=== PATIENT | male | born 1990 | race Caucasian/White ===

== ENCOUNTER 2021-11-01 12:07 | Inpatient (IN) | payer OTHER ==
[~2021-11-01] VITALS: Ht 182.9 cm; Wt 100.0 kg
[2021-11-01] MEDS ORDERED: LORazepam 2 MG/ML VIAL IV STA (13:23)
[2021-11-01] MEDS ORDERED: NS 1,000 ML IV ONE (13:25)
[2021-11-01 14:03] LABS: BASO % 0.6 % (0.0-1.0); EOS # 0.4 10^3/uL (0.0-0.5); EOS % 5.7 % (0.0-3.0); HEMATOCRIT 40.3 % (42.0-52.0); HEMOGLOBIN 13.9 g/dl (13.5-17.5); LYMPH # 0.8 10^3/uL (1.5-5.0); LYMPH % 11.9 % (24.0-44.0); MEAN CORPUSCULAR HEMOGLOBIN 32.4 pg (27.0-33.0); MEAN CORPUSCULAR HGB CONC 34.5 g/dl (32.0-36.5); MEAN CORPUSCULAR VOLUME 93.9 fl (80.0-96.0); MONO # 0.6 10^3/uL (0.0-0.8); MONO % 8.8 % (2.0-8.0); NEUTROPHILS # 5.1 10^3/uL (1.5-8.5); NEUTROPHILS % 72.6 % (36.0-66.0); PLATELET COUNT, AUTOMATED 136 10^3/uL (150-450); RED BLOOD COUNT 4.29 10^6/uL (4.30-6.10)
[2021-11-01 14:30] LABS: ALBUMIN 4.4 GM/DL (3.2-5.2); ALT/SGPT 299 U/L (12-78); BILIRUBIN,DIRECT < 0.1 MG/DL (0.0-0.2); BILIRUBIN,TOTAL 0.6 MG/DL (0.2-1.0); LIPASE 170 U/L (73-393); TOTAL PROTEIN 8.2 GM/DL (6.4-8.2)
[2021-11-01] MEDS ORDERED: ISOVUE-370 76% 100ML VIAL As Ordered ONE (14:43)
[2021-11-01] MEDS: LORazepam 2 MG TAB PO PRN ×2 (14:53→17:28)
[2021-11-01 15:16] LABS: ETHYL ALCOHOL (ETHANOL) 0.019 % (0.000-0.010)
[2021-11-01 18:17] LABS: AMPHETAMINES LEVEL URINE NEGATIVE (NEGATIVE); BARBITURATES URINE NEGATIVE (NEGATIVE); BENZODIAZEPINES URINE NEGATIVE (NEGATIVE); CANNABINOIDS URINE NEGATIVE (NEGATIVE); COCAINE METABOLITE URINE NEGATIVE (NEGATIVE); METHADONE URINE NEGATIVE (NEGATIVE); OPIATES URINE NEGATIVE (NEGATIVE); PHENCYCLIDINE URINE NEGATIVE (NEGATIVE)
[2021-11-01 18:46] LABS: RSV AMPLIFICATION NEGATIVE (NEGATIVE)
[2021-11-01] MEDS ORDERED: LORazepam 2 MG TAB PO PRN (19:55)
[2021-11-01] MEDS: NS 1,000 ML IV SCH (20:36)
[2021-11-01] MEDS: OXAZEPAM 10MG CAP PO SCH (20:36)
[2021-11-01] MEDS ORDERED: ADVI200T PO (21:29)
[2021-11-01] MEDS ORDERED: HOME MED LIST COMPLETE! XX SCH (21:30)
[2021-11-01 21:32] LABS: HEPATITIS B SURFACE ANTIGEN NEGATIVE (NEGATIVE)
[2021-11-01 22:00] LABS: HEPATITIS C VIRUS ABY INDEX 0.2 INDEX (<0.8)
[2021-11-01 22:01] LABS: HEPATITIS B CORE ANTIBODY IGM NEGATIVE (NEGATIVE)
[2021-11-02] MEDS: OXAZEPAM 10MG CAP PO SCH ×5 (01:46→23:10)
[2021-11-02] MEDS: NS 1,000 ML IV SCH (06:20)
[2021-11-02 08:00] VITALS: BP 134/81
[2021-11-02] MEDS: ENOXAPARIN 40MG/0.4ML SYRINGE (J1650 PER 10MG) SC SCH (08:05)
[2021-11-02] MEDS: THIAMINE 100 MG TAB PO SCH (08:05)
[2021-11-02] MEDS: FOLIC ACID 1 MG TAB PO SCH (08:05)
[2021-11-02] MEDS: MULTIVITAMINS/MINERALS THERAP 1 TAB PO SCH (08:05)
[2021-11-02 09:27] LABS: ALBUMIN 4.1 GM/DL (3.2-5.2); ALT/SGPT 244 U/L (12-78); BLOOD UREA NITROGEN 10 MG/DL (7-18); CALCIUM LEVEL 9.7 MG/DL (8.5-10.1); CARBON DIOXIDE LEVEL 30 MEQ/L (21-32); CHLORIDE LEVEL 100 MEQ/L (98-107); CREATININE FOR GFR 0.92 MG/DL (0.70-1.30); GLOMERULAR FILTRATION RATE > 60.0 (>60); GLUCOSE, FASTING 92 MG/DL (70-100); POTASSIUM SERUM 4.4 MEQ/L (3.5-5.1); SODIUM LEVEL 136 MEQ/L (136-145); TOTAL PROTEIN 7.4 GM/DL (6.4-8.2)
[2021-11-02 14:00] VITALS: BP 139/76
[2021-11-02 17:25] VITALS: BP 165/86
[2021-11-02 22:00] VITALS: BP 153/85
[2021-11-03 04:13] VITALS: BP 139/85
[2021-11-03] MEDS: OXAZEPAM 10MG CAP PO SCH (05:38)
[2021-11-03 05:41] VITALS: BP 139/85
[2021-11-03] MEDS ORDERED: FOLI1TAB11 PO (08:36)
[2021-11-03] MEDS ORDERED: OXAZ10CA3 PO (08:36)
[2021-11-03] MEDS ORDERED: THIA100TA PO (08:36)
[2021-11-03] MEDS ORDERED: VITMTA PO (08:36)
[2021-11-03] MEDS: ENOXAPARIN 40MG/0.4ML SYRINGE (J1650 PER 10MG) SC SCH (09:00)
[2021-11-03] MEDS: MULTIVITAMINS/MINERALS THERAP 1 TAB PO SCH (09:06)
[2021-11-03] MEDS: FOLIC ACID 1 MG TAB PO SCH (09:06)
[2021-11-03] MEDS: THIAMINE 100 MG TAB PO SCH (09:06)
== END 2021-11-03 10:20 | disposition home or self-care (01) | DRG 898 ==
LOC: M ED 12:07 → M ED INP 19:51 → M MSPAV 11-02 17:26
PROVIDERS: ADMIT Family Medicine; ATTEND Internal Medicine
DX: F10.139 Alcohol abuse with withdrawal, unspecified (principal); R74.01 Elevation of levels of liver transaminase levels; Z20.822 Contact with and (suspected) exposure to COVID-19

== ENCOUNTER 2022-01-04 00:48 | Inpatient (IN) | payer OTHER ==
[~2022-01-04] VITALS: Ht 185.4 cm; Wt 100.5 kg
[~2022-01-04 00:48] MED LIST: ADVI200T PO; FOLI1TAB11 PO; OXAZ10CA3 PO; THIA100TA PO; VITMTA PO
[2022-01-04 01:45] LABS: HEMATOCRIT 42.9 % (42.0-52.0); HEMOGLOBIN 14.6 g/dl (13.5-17.5); MEAN CORPUSCULAR HEMOGLOBIN 30.9 pg (27.0-33.0); MEAN CORPUSCULAR VOLUME 90.7 fl (80.0-96.0); PLATELET COUNT, AUTOMATED 240 10^3/uL (150-450); RED BLOOD COUNT 4.73 10^6/uL (4.30-6.10); WHITE BLOOD COUNT 9.3 10^3/uL (4.0-10.0)
[2022-01-04 02:01] LABS: AMPHETAMINES LEVEL URINE NEGATIVE (NEGATIVE); BARBITURATES URINE NEGATIVE (NEGATIVE); BENZODIAZEPINES URINE NEGATIVE (NEGATIVE); CANNABINOIDS URINE NEGATIVE (NEGATIVE); COCAINE METABOLITE URINE NEGATIVE (NEGATIVE); METHADONE URINE NEGATIVE (NEGATIVE); OPIATES URINE NEGATIVE (NEGATIVE); PHENCYCLIDINE URINE NEGATIVE (NEGATIVE)
[2022-01-04 02:04] LABS: RSV AMPLIFICATION NEGATIVE (NEGATIVE)
[2022-01-04 02:11] LABS: ACETAMINOPHEN LEVEL < 2.0 UG/ML (10.0-30.0); ALBUMIN 4.3 GM/DL (3.2-5.2); ALT/SGPT 22 U/L (12-78); BILIRUBIN,DIRECT 0.2 MG/DL (0.0-0.2); BLOOD UREA NITROGEN 8 MG/DL (7-18); CALCIUM LEVEL 10.2 MG/DL (8.5-10.1); CARBON DIOXIDE LEVEL 30 MEQ/L (21-32); CHLORIDE LEVEL 99 MEQ/L (98-107); CREATININE FOR GFR 1.09 MG/DL (0.70-1.30); ETHYL ALCOHOL (ETHANOL) < 0.003 % (0.000-0.010); GLOMERULAR FILTRATION RATE > 60.0 (>60); GLUCOSE, FASTING 107 MG/DL (70-100); SALICYLATE LEVEL < 1.7 MG/DL (5.0-30.0); SODIUM LEVEL 136 MEQ/L (136-145); TOTAL PROTEIN 7.6 GM/DL (6.4-8.2)
[2022-01-04] MEDS ORDERED: MULTIVITAMINS/MINERALS THERAP 1 TAB PO SCH (09:00)
[2022-01-04] MEDS ORDERED: THIAMINE 100 MG TAB PO SCH (09:00)
[2022-01-04] MEDS ORDERED: FOLIC ACID 1 MG TAB PO SCH (09:00)
[2022-01-04] MEDS ORDERED: HOME MED LIST COMPLETE! XX SCH (09:50)
[2022-01-04] MEDS ORDERED: IBUPROFEN 400MG TAB PO PRN (17:50)
[2022-01-04] MEDS ORDERED: OLANZapine 5 MG TAB PO PRN (17:50)
[2022-01-04] MEDS ORDERED: LORazepam 2 MG TAB PO PRN (17:50)
[2022-01-04] MEDS ORDERED: MOM 30ML SUSPENSION UDC PO PRN (17:50)
[2022-01-04] MEDS ORDERED: MAALOX 30 ML SUSP *UDC PO PRN (17:50)
[2022-01-04 23:16] VITALS: BP 133/84
[2022-01-04] MEDS: THIAMINE 100 MG TAB PO SCH (23:27)
[2022-01-04] MEDS: traZODone 50 MG TAB PO PRN (23:27)
[2022-01-04 23:31] VITALS: BP 133/84
[2022-01-05 06:16] VITALS: BP 169/77
[2022-01-05 06:28] VITALS: BP 169/77
[2022-01-05] MEDS: FOLIC ACID 1 MG TAB PO SCH (09:47)
[2022-01-05] MEDS: THIAMINE 100 MG TAB PO SCH ×2 (09:47→20:59)
[2022-01-05] MEDS: MULTIVITAMINS/MINERALS THERAP 1 TAB PO SCH (09:47)
[2022-01-05] MEDS: NICOTINE 21MG/24HR 1 EA TRANSDERMAL TD PRN (09:49)
[2022-01-05] MEDS: NALTREXONE 50 MG TAB PO SCH (13:26)
[2022-01-05] MEDS: SERTRALINE HCL 50 MG TAB PO SCH (13:26)
[2022-01-05 13:55] VITALS: BP 140/86
[2022-01-05 18:34] VITALS: BP 119/73
[2022-01-05] MEDS: traZODone 50 MG TAB PO PRN (20:59)
[2022-01-06 06:54] VITALS: BP 136/82
[2022-01-06] MEDS: SERTRALINE HCL 50 MG TAB PO SCH (08:56)
[2022-01-06] MEDS: FOLIC ACID 1 MG TAB PO SCH (08:56)
[2022-01-06] MEDS: THIAMINE 100 MG TAB PO SCH ×2 (08:56→21:39)
[2022-01-06] MEDS: MULTIVITAMINS/MINERALS THERAP 1 TAB PO SCH (08:57)
[2022-01-06] MEDS: NALTREXONE 50 MG TAB PO SCH (08:57)
[2022-01-06 14:20] VITALS: BP 128/78
[2022-01-06] MEDS: NICOTINE 21MG/24HR 1 EA TRANSDERMAL TD PRN (15:51)
[2022-01-06 18:00] VITALS: BP 110/60
[2022-01-06] MEDS: traZODone 50 MG TAB PO PRN (21:39)
[2022-01-06 22:00] VITALS: BP 135/80
[2022-01-07 06:00] VITALS: BP 133/79
[2022-01-07 06:48] VITALS: BP 133/79
[2022-01-07] MEDS: SERTRALINE HCL 50 MG TAB PO SCH (08:20)
[2022-01-07] MEDS: FOLIC ACID 1 MG TAB PO SCH (08:20)
[2022-01-07] MEDS: THIAMINE 100 MG TAB PO SCH (08:20)
[2022-01-07] MEDS: MULTIVITAMINS/MINERALS THERAP 1 TAB PO SCH (08:20)
[2022-01-07] MEDS: NICOTINE 21MG/24HR 1 EA TRANSDERMAL TD PRN (08:20)
[2022-01-07] MEDS: NALTREXONE 50 MG TAB PO SCH (08:20)
[2022-01-07 14:55] VITALS: BP 130/80
[2022-01-07 18:00] VITALS: BP 145/71
[2022-01-07] MEDS: traZODone 50 MG TAB PO PRN (20:47)
[2022-01-08 07:00] VITALS: BP 140/90
[2022-01-08] MEDS: SERTRALINE HCL 50 MG TAB PO SCH (08:29)
[2022-01-08] MEDS: NALTREXONE 50 MG TAB PO SCH (08:29)
[2022-01-08] MEDS: NICOTINE 21MG/24HR 1 EA TRANSDERMAL TD PRN (08:30)
[2022-01-08] MEDS: traZODone 50 MG TAB PO PRN (21:11)
[2022-01-09 07:11] VITALS: BP 131/86
[2022-01-09] MEDS: SERTRALINE HCL 50 MG TAB PO SCH (07:55)
[2022-01-09] MEDS: NICOTINE 21MG/24HR 1 EA TRANSDERMAL TD PRN (07:55)
[2022-01-09] MEDS: NALTREXONE 50 MG TAB PO SCH (07:56)
[2022-01-09 16:23] VITALS: BP 140/83
[2022-01-09] MEDS: traZODone 50 MG TAB PO PRN (20:26)
[2022-01-10 06:20] VITALS: BP 139/71
[2022-01-10] MEDS: NICOTINE 21MG/24HR 1 EA TRANSDERMAL TD PRN (08:07)
[2022-01-10] MEDS: SERTRALINE HCL 50 MG TAB PO SCH (08:07)
[2022-01-10] MEDS: NALTREXONE 50 MG TAB PO SCH (08:07)
[2022-01-10 16:54] VITALS: BP 119/78
[2022-01-10] MEDS: traZODone 50 MG TAB PO PRN (20:51)
[2022-01-11 06:35] VITALS: BP 138/84
[2022-01-11] MEDS: SERTRALINE HCL 50 MG TAB PO SCH (08:03)
[2022-01-11] MEDS: NALTREXONE 50 MG TAB PO SCH (08:03)
[2022-01-11] MEDS: NICOTINE 21MG/24HR 1 EA TRANSDERMAL TD PRN (14:10)
[2022-01-11 16:54] VITALS: BP 139/86
[2022-01-11] MEDS: traZODone 50 MG TAB PO PRN (20:10)
[2022-01-12 07:21] VITALS: BP 128/70
[2022-01-12] MEDS: SERTRALINE HCL 50 MG TAB PO SCH (07:44)
[2022-01-12] MEDS: NALTREXONE 50 MG TAB PO SCH (07:44)
[2022-01-12] MEDS: NICOTINE 21MG/24HR 1 EA TRANSDERMAL TD PRN (17:00)
[2022-01-12 17:48] VITALS: BP 139/75
[2022-01-12] MEDS: traZODone 50 MG TAB PO PRN (20:54)
[2022-01-13 07:08] VITALS: BP 121/61
[2022-01-13] MEDS: SERTRALINE HCL 50 MG TAB PO SCH (08:25)
[2022-01-13] MEDS: NALTREXONE 50 MG TAB PO SCH (08:25)
[2022-01-13] MEDS: NICOTINE 21MG/24HR 1 EA TRANSDERMAL TD PRN (08:25)
[2022-01-13 16:51] VITALS: BP 140/72
[2022-01-13] MEDS: traZODone 50 MG TAB PO PRN (20:44)
[2022-01-14 07:07] VITALS: BP 135/78
[2022-01-14] MEDS: NALTREXONE 50 MG TAB PO SCH (08:21)
[2022-01-14] MEDS: SERTRALINE HCL 50 MG TAB PO SCH (08:21)
[2022-01-14] MEDS: NICOTINE 21MG/24HR 1 EA TRANSDERMAL TD PRN (08:21)
[2022-01-14 16:40] VITALS: BP 127/60
[2022-01-14] MEDS: traZODone 50 MG TAB PO PRN (20:34)
[2022-01-15 07:12] VITALS: BP 136/64
[2022-01-15] MEDS: NALTREXONE 50 MG TAB PO SCH (08:17)
[2022-01-15] MEDS: SERTRALINE HCL 50 MG TAB PO SCH (08:17)
[2022-01-15] MEDS: NICOTINE 21MG/24HR 1 EA TRANSDERMAL TD PRN (11:21)
[2022-01-15 16:42] VITALS: BP 131/57
[2022-01-15] MEDS: traZODone 50 MG TAB PO PRN (20:13)
[2022-01-16 06:31] VITALS: BP 137/83
[2022-01-16] MEDS: NALTREXONE 50 MG TAB PO SCH (08:26)
[2022-01-16] MEDS: NICOTINE 21MG/24HR 1 EA TRANSDERMAL TD PRN (08:26)
[2022-01-16] MEDS: SERTRALINE HCL 50 MG TAB PO SCH (08:26)
[2022-01-16 18:00] VITALS: BP 135/66
[2022-01-16] MEDS: traZODone 50 MG TAB PO PRN (20:39)
[2022-01-17 06:57] VITALS: BP 127/75
[2022-01-17] MEDS: NALTREXONE 50 MG TAB PO SCH (08:18)
[2022-01-17] MEDS: SERTRALINE HCL 50 MG TAB PO SCH (08:18)
[2022-01-17] MEDS: NICOTINE 21MG/24HR 1 EA TRANSDERMAL TD PRN (08:24)
[2022-01-17] MEDS: NICOTINE POLACRILEX 2 MG GUM PO PRN ×2 (11:19→20:18)
[2022-01-17] MEDS: traZODone 50 MG TAB PO PRN (20:17)
[2022-01-18 06:46] VITALS: BP 129/73
[2022-01-18] MEDS ORDERED: NALT50TA4 PO (08:06)
[2022-01-18] MEDS ORDERED: NICO2GUM PO (08:06)
[2022-01-18] MEDS ORDERED: SERT50TA29 PO (08:06)
[2022-01-18] MEDS ORDERED: TRAZ-252 PO (08:06)
[2022-01-18] MEDS: NALTREXONE 50 MG TAB PO SCH (08:18)
[2022-01-18] MEDS: SERTRALINE HCL 50 MG TAB PO SCH (08:18)
[2022-01-18] MEDS: NICOTINE POLACRILEX 2 MG GUM PO PRN (08:22)
== END 2022-01-18 08:40 | disposition home or self-care (01) | DRG 885 ==
LOC: M ED 00:48 → M ED INP 17:47 → M PSY 22:28
PROVIDERS: ADMIT Student in an Organized Health Care Education/Training Program; ATTEND Student in an Organized Health Care Education/Training Program
DX: F33.1 Major depressive disorder, recurrent, moderate (principal); R45.851 Suicidal ideations; F10.10 Alcohol abuse, uncomplicated; F17.200 Nicotine dependence, unspecified, uncomplicated

== ENCOUNTER 2022-01-29 12:02 | Emergency (ER) | payer OTHER ==
[~2022-01-29] VITALS: Ht 185.4 cm; Wt 95.9 kg
[~2022-01-29 12:02] MED LIST changes: +NALT50TA4 PO; +NICO2GUM PO; +SERT50TA29 PO; +TRAZ-252 PO
[2022-01-29 12:03] VITALS: BP_DIAS 83
[2022-01-29] MEDS ORDERED: SERTRALINE HCL 50 MG TAB PO ONE (14:50)
[2022-01-29 15:56] VITALS: BP_SYST 140
[2022-02-01] MEDS ORDERED: TRAZ1TAB10 PO (15:43)
[2022-02-01] MEDS ORDERED: SERT-141 PO (15:43)
[2022-02-01] MEDS ORDERED: NALT50TA4 PO (15:44)
[2022-02-01] MEDS ORDERED: NICO-267 PO (15:44)
== END 2022-01-29 16:02 | disposition home or self-care (01) ==
LOC: M ED 12:02
DX: Z76.0 Encounter for issue of repeat prescription (principal); R19.7 Diarrhea, unspecified; Z91.51 Personal history of suicidal behavior; J45.909 Unspecified asthma, uncomplicated; F41.9 Anxiety disorder, unspecified; F10.10 Alcohol abuse, uncomplicated; F17.200 Nicotine dependence, unspecified, uncomplicated; Z79.899 Other long term (current) drug therapy